=== PATIENT | male | born 2000 | race African-American/Black ===

== ENCOUNTER 2023-02-16 20:24 | Inpatient (IN) | payer MEDICAID ==
[~2023-02-16] VITALS: Ht 172.7 cm; Wt 54.8 kg
[2023-02-16 22:04] LABS: BASOPHILS % (AUTO) 0.4 % (0.0-2.0); EOSINOPHILS % (AUTO) 2.1 % (1.0-6.0); HEMATOCRIT 37.3 % (41-53); HEMOGLOBIN 13.2 g/dL (13.5-17.5); LYMPHOCYTES # (AUTO) 3.7 K/uL (1.0-4.8); LYMPHOCYTES % (AUTO) 40.5 % (22.0-44.0); MEAN CORPUSCULAR HEMOGLOBIN 32.7 pg (26.0-34.0); MEAN CORPUSCULAR HGB CONC 35.3 G/dL (31.0-37.0); MEAN CORPUSCULAR VOLUME 93 fL (80-100); MONOCYTES # (AUTO) 0.8 K/uL (0.1-1.0); MONOCYTES % (AUTO) 8.8 % (2.0-9.0); NEUTROPHILS # (AUTO) 4.4 K/uL (1.8-7.7); NEUTROPHILS % (AUTO) 48.2 % (40.0-70.0); PLATELET COUNT (AUTO) 260 K/uL (150-450); RED BLOOD CELL COUNT(AUTO) 4.03 MIL/uL (4.50-5.90); RED CELL DISTRIBUTION WIDTH 13.8 % (11.5-14.5)
[2023-02-16 22:06] LABS: ANION GAP 3 mmol/L (8-16); CALCIUM, TOTAL 8.6 mg/dL (8.8-10.5); CARBON DIOXIDE 32 mmol/L (22-29); CHLORIDE 106 mmol/L (98-107); CREATININE 1.22 mg/dL (0.60-1.30); GLOMERULAR FILTR. RATE CALC > 60 mL/min (>60); GLUCOSE,RANDOM 102 mg/dL (70-110); POTASSIUM 3.7 mmol/L (3.5-5.1); SODIUM SERUM 141 mmol/L (136-145); UREA NITROGEN, BLOOD 18 mg/dL (7-18)
[2023-02-16 22:11] LABS: ALANINE AMINOTRANSFERASE 32 U/L (12-78); ALBUMIN 3.3 g/dL (3.4-5.0); ALKALINE PHOSPHATASE 77 U/L (46-116); ASPARTATE AMINOTRANSFERASE 17 U/L (15-37); BILIRUBIN,TOTAL 0.2 mg/dL (0.1-1.0); TOTAL PROTEIN, SERUM 6.2 g/dL (6.4-8.2)
[2023-02-16 22:17] LABS: ALCOHOL, BLOOD (SERUM) < 3 mg/dL (0-10)
[2023-02-16] MEDS ORDERED: HALOPERIDOL 5 MG TABLET PO PRN (23:00)
[2023-02-16] MEDS ORDERED: LORazepam 2 MG TABLET PO PRN (23:00)
[2023-02-16] MEDS ORDERED: DiphenhydrAMINE HCL 25 MG CAPSULE PO ONE (23:15)
[2023-02-17 00:34] LABS: COVID AG,FIA SOURCE NASAL SWAB
[2023-02-17 00:59] LABS: SARS-COV2 (COVID) ANTIGEN,FIA Negative (Negative)
[2023-02-17 03:20] VITALS: BP 98/63; PULSE 74; RESP 18; TEMP 97.9; O2SAT 98
[2023-02-17 09:47] VITALS: RESP 18
[2023-02-17] MEDS ORDERED: ALBUTEROL SULFATE HFA 90 MCG/PUFF 8 GM INHALER IH PRN (10:45)
[2023-02-17] MEDS ORDERED: MAG HYDROX/ALUMINUM HYD/SIMETH ES 30 ML SUSPENSION UDCUP PO PRN (10:45)
[2023-02-17] MEDS ORDERED: LOPERAMIDE HCL 2 MG CAPSULE PO PRN (10:45)
[2023-02-17] MEDS ORDERED: PETROLATUM,WHITE 28 GM JELLY TP PRN (10:45)
[2023-02-17] MEDS ORDERED: GuaiFENesin/D-METHORPHAN [SUGAR-FREE] 200-20MG/10 ML SYRUP UDCUP PO PRN (10:45)
[2023-02-17] MEDS ORDERED: NICOTINE 14 MG/24 HOUR PATCH TD PRN (10:45)
[2023-02-17] MEDS ORDERED: MAGNESIUM HYDROXIDE SUSPENSION 30 ML UDCUP PO PRN (10:45)
[2023-02-17] MEDS ORDERED: ONDANSETRON HCL 4 MG TABLET PO PRN (10:45)
[2023-02-17] MEDS ORDERED: IBUPROFEN 400 MG TABLET PO PRN (10:45)
[2023-02-17] MEDS ORDERED: ACETAMINOPHEN 325 MG TABLET PO PRN (10:45)
[2023-02-17] MEDS ORDERED: CloNIDine HCL 0.1 MG TABLET PO PRN (10:45)
[2023-02-17] MEDS ORDERED: DOCUSATE SODIUM 100 MG CAPSULE PO PRN (10:45)
[2023-02-17] MEDS: BuPROPion HCL XL 150 MG ER TABLET PO SCH (11:07)
[2023-02-17] MEDS: RisperiDONE 1 MG TABLET PO SCH ×2 (11:07→16:52)
[2023-02-17 22:25] VITALS: RESP 18
[2023-02-17] MEDS: ZOLPIDEM TARTRATE 10 MG TABLET PO PRN (22:47)
[2023-02-18 08:24] LABS: MAGNESIUM 2.2 mg/dL (1.80-2.40); THYROID STIMULATING HORMONE 1.66 uIU/mL (0.36-3.74)
[2023-02-18 09:00] VITALS: RESP 19
[2023-02-18] MEDS: MULTIVITAMINS, THERAPEUTIC TABLET PO SCH (09:03)
[2023-02-18] MEDS: THIAMINE 100 MG TABLET PO SCH (09:03)
[2023-02-18] MEDS: BuPROPion HCL XL 150 MG ER TABLET PO SCH (09:03)
[2023-02-18] MEDS: RisperiDONE 1 MG TABLET PO SCH ×2 (09:03→17:20)
[2023-02-18 10:15] LABS: CHOL/HDL RATIO 3.1 (4.2-7.3)
[2023-02-18] MEDS ORDERED: DiphenhydrAMINE HCL 25 MG CAPSULE PO PRN (11:45)
[2023-02-18] MEDS: DiphenhydrAMINE HCL 25 MG CAPSULE PO ONE ×2 (11:57→12:08)
[2023-02-18] MEDS: HYDROCORTISONE 0.5% 30 GM CREAM TP PRN (18:54)
[2023-02-18 20:50] VITALS: RESP 18
[2023-02-18] MEDS: ZOLPIDEM TARTRATE 10 MG TABLET PO PRN (22:29)
[2023-02-19] MEDS: THIAMINE 100 MG TABLET PO SCH (08:58)
[2023-02-19] MEDS: MULTIVITAMINS, THERAPEUTIC TABLET PO SCH (08:58)
[2023-02-19] MEDS: RisperiDONE 1 MG TABLET PO SCH ×2 (08:58→17:17)
[2023-02-19] MEDS: BuPROPion HCL XL 150 MG ER TABLET PO SCH (08:58)
[2023-02-19] MEDS: ZOLPIDEM TARTRATE 10 MG TABLET PO PRN (20:32)
[2023-02-20] MEDS: HYDROCORTISONE 0.5% 30 GM CREAM TP PRN (03:53)
[2023-02-20] MEDS: MULTIVITAMINS, THERAPEUTIC TABLET PO SCH ×2 (09:00→09:14)
[2023-02-20] MEDS: RisperiDONE 1 MG TABLET PO SCH ×3 (09:00→17:00)
[2023-02-20] MEDS: BuPROPion HCL XL 150 MG ER TABLET PO SCH ×2 (09:00→09:14)
[2023-02-20] MEDS: THIAMINE 100 MG TABLET PO SCH ×2 (09:00→09:14)
[2023-02-20] MEDS: ZOLPIDEM TARTRATE 10 MG TABLET PO PRN (21:00)
[2023-02-20 21:25] VITALS: TEMP 98.1
[2023-02-21] MEDS: THIAMINE 100 MG TABLET PO SCH (09:00)
[2023-02-21] MEDS: BuPROPion HCL XL 150 MG ER TABLET PO SCH (09:00)
[2023-02-21] MEDS: RisperiDONE 1 MG TABLET PO SCH ×2 (09:00→17:00)
[2023-02-21] MEDS: MULTIVITAMINS, THERAPEUTIC TABLET PO SCH (09:00)
[2023-02-21] MEDS ORDERED: LORazepam 2 MG/ML VIAL ONE (18:35)
[2023-02-21] MEDS ORDERED: DiphenhydrAMINE HCL 50 MG/ML VIAL ONE (18:35)
[2023-02-21] MEDS ORDERED: HALOPERIDOL LACTATE 5 MG/ML VIAL ONE (18:35)
[2023-02-21] MEDS ORDERED: LORazepam 2 MG/ML VIAL IM ONE (18:45)
[2023-02-21] MEDS ORDERED: HALOPERIDOL LACTATE 5 MG/ML VIAL IM ONE (18:45)
[2023-02-21] MEDS ORDERED: DiphenhydrAMINE HCL 50 MG/ML VIAL IM ONE (18:45)
[2023-02-21 21:27] VITALS: RESP 18
[2023-02-22 08:17] VITALS: TEMP 97.9
[2023-02-22] MEDS: MULTIVITAMINS, THERAPEUTIC TABLET PO SCH (09:00)
[2023-02-22] MEDS: THIAMINE 100 MG TABLET PO SCH (09:00)
[2023-02-22] MEDS: RisperiDONE 1 MG TABLET PO SCH (09:00)
[2023-02-22] MEDS: BuPROPion HCL XL 150 MG ER TABLET PO SCH (09:00)
== END 2023-02-22 14:51 | disposition left against medical advice (07) | DRG 750 ==
LOC: EMS 20:26 → 3EC 02-17 00:47
PROVIDERS: ADMIT Psychiatry & Neurology Child & Adolescent Psychiatry; ATTEND Psychiatry & Neurology Child & Adolescent Psychiatry
PROC: GZHZZZZ Group Psychotherapy (ICD-10-PCS; principal; 2023-02-19)
DX: F25.1 Schizoaffective disorder, depressive type (principal); R45.851 Suicidal ideations; D64.9 Anemia, unspecified; F15.90 Other stimulant use, unspecified, uncomplicated; F17.210 Nicotine dependence, cigarettes, uncomplicated; Z20.822 Contact with and (suspected) exposure to COVID-19; Z53.21 Procedure and treatment not carried out due to patient leaving prior to being seen by health care provider; F32.A Depression, unspecified; Z91.018 Allergy to other foods; Z91.09 Other allergy status, other than to drugs and biological substances
CPT/HCPCS: 80053; 80061; 83036; 83735; 84100; 84443; 85025; 99285; G0480; J1200; J1630; J2060